=== PATIENT | male | born 1960 | race Caucasian/White ===

== ENCOUNTER 2021-01-29 20:57 | Emergency (ER) | payer OTHER ==
--- NOTE | 2021-01-29 21:32 | ED Respiratory ---
General Stated Complaint: LAKE,SORE THROAT,CONGESTION Source: patient History of Present Illness Date Seen by Provider: Jan 29, 2021 Time Seen by Provider: 21:25 Initial Comments PT ARRIVES VIA POV FROM HOME C/O COUGH C/O NASAL CONGESTION AND SINUS PRESSURE X 1 WEEK C/O HEADACHE C/O SORE THROAT HAS HAD SUBJECTIVE FEVER AND CHILLS SINCE Friday01/27/21 C/O BODY ACHES AND BACK PAIN C/O NAUSEA AND VOMITING--UNKNOWN # OF EPISODES OF EMESIS HAS HAD A FEW EPISODES OF DIARRHEA NO ABDOMINAL PAIN\\ SOME SHORTNESS OF BREATH--USES ALBUTEROL INHALER PRN FOR ASTHMA--NORMALLY USES A COUPLE OF TIMES A MONTH, HAS USED 4-5 TIMES IN THE LAST WEEK BUT NOT USED FOR THE LAST COUPLE OF DAYS ALL SYMPTOMS HAVE PROGRESSIVELY GOTTEN WORSE OVER THE LAST WEEK STATES HE HAS NOT VOIDED SINCE YESTERDAY WENT TO [facility] AND WAS TOLD TO TAKE ANTIHISTAMINE, BUT IT CAUSES ANXIETY, PALPITATIONS, UNABLE TO SLEEP, SO HAS NOT BEEN TAKING IT. REPORTS THAT RAPID COVID TEST WAS NEGATIVE PT WORKS FOR THE [employer] AND TRAVELS ALL OVER THE COUN[place]. ORIGINALLY FROM [facility]. Allergies and Home Medications Allergies Coded Allergies: clarithromycin (Verified Allergy, Unknown, 01/29/21) Uncoded Allergies: antihistamines (Adverse Reaction, Unknown, 01/29/21) Home Medications Benzonatate 100 Mg Capsule, 200 MG PO TID Prescribed by: ANA LILIA POST on 01/29/212315 Cefdinir 300 Mg Capsule, 300 MG PO BID Prescribed by: ANA LILIA POST on 01/29/212315 Guaifenesin/Dextromethorphan 1 Each Tbmp.12hr, 1 EACH PO BID Prescribed by: ANA LILIA POST on 01/29/212315 Methylprednisolone 4 Mg Tab.ds.pk, 4 MG PO UD PER DOSE PACK INSTRUCTIONS Prescribed by: ANA LILIA POST on 01/29/212315 Patient Home Medication List Home Medication List Reviewed: Yes Review of Systems Review of Systems Constitutional: see HPI, chills, fever, malaise, weakness EENTM: see HPI, nose congestion, throat pain Respiratory: see HPI, cough, short of breath Cardiovascular: no symptoms reported Gastrointestinal: see HPI; No abdominal pain; diarrhea, loss of appetite, na usea, vomiting Genitourinary: see HPI, decreased output Musculoskeletal: see HPI (BODY ACHES) Skin: no symptoms reported Psychiatric/Neurological: See HPI, Headache Hematologic/Lymphatic: No Symptoms Reported Immunological/Allergic: no symptoms reported Past Yrilwwm-Lwqzqt-Vybkwj Hx Past Med/Social Hx: Reviewed and Corrections made Patient Social History Alcohol Use: Occasionally Uses Drug of Choice: DENIES Smoking Status: Current Everyday Smoker Type Used: Cigarettes Past Medical History Surgeries: No Respiratory: Yes Asthma Cardiac: No Neurological: No Genitourinary: No Gastrointestinal: No Musculoskeletal: No Endocrine: No HEENT: No Cancer: No Psychosocial: No Integumentary: No Blood Disorders: No Physical Exam Vital Signs - First Documented 01/29/21 21:10 Temp 37.2 Pulse 87 Resp 16 B/P (MAP) 129/102 (111) Pulse Ox 97 O2 Delivery Room Air Capillary Refill : Height: '" Weight: lbs. oz. 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3-17.7 g/dL Hematocrit 51 40-54 % Mean Corpuscular Volume 91 80-99 fL Mean Corpuscular Hemoglobin 29 25-34 pg Mean Corpuscular Hemoglobin Concent 33 32-36 g/dL Red Cell Distribution Width 13.2 10.0-14.5 % Platelet Count 293 130-400 10^3/uL Mean Platelet Volume 9.8 9.0-12.2 fL Immature Granulocyte % (Auto) 0 % Neutrophils (%) (Auto) 73 42-75 % Lymphocytes (%) (Auto) 14 12-44 % Monocytes (%) (Auto) 9 0-12 % Eosinophils (%) (Auto) 3 0-10 % Basophils (%) (Auto) 1 0-10 % Neutrophils # (Auto) 7.2 1.8-7.8 10^3/uL Lymphocytes # (Auto) 1.4 1.0-4.0 10^3/uL Monocytes # (Auto) 0.9 0.0-1.0 10^3/uL Eosinophils # (Auto) 0.3 0.0-0.3 10^3/uL Basophils # (Auto) 0.1 0.0-0.1 10^3/uL Immature Granulocyte # (Auto) 0.0 0.0-0.1 10^3/uL Erythrocyte Sedimentation Rate 1 0-30 MM/HR D-Dimer 0.50 H 0.00-0.49 UG/ML Sodium Level 141 135-145 MMOL/L Potassium Level 4.2 3.6-5.0 MMOL/L Chloride Level 104 98-107 MMOL/L Carbon Dioxide Level 26 21-32 MMOL/L Anion Gap 11 5-14 MMOL/L Blood Urea Nitrogen 10 7-18 MG/DL Creatinine 1.21 0.60-1.30 MG/DL Estimat Glomerular Filtration Rate > 60 BUN/Creatinine Ratio 8 Glucose Level 88 70-105 MG/DL Calcium Level 9.3 8.5-10.1 MG/DL Corrected Calcium 8.5-10.1 MG/DL Total Bilirubin 0.6 0.1-1.0 MG/DL Aspartate Amino Transf (AST/SGOT) 21 5-34 U/L Alanine Aminotransferase (ALT/SGPT) 23 0-55 U/L Alkaline Phosphatase 92 40-136 U/L Lactate Dehydrogenase 230 H 125-220 U/L C-Reactive Protein High Sensitivity 0.58 H 0.00-0.50 MG/DL Total Protein 7.5 6.4-8.2 GM/DL Albumin 4.6 H 3.2-4.5 GM/DL Procalcitonin 0.05 <0.10 NG/ML Monoscreen NEGATIVE NEGATIVE Coronavirus (COVID-19)(PCR) Negative Negative Coronavirus 2018 ([facility]) Negative Negative Group A Streptococcus Screen NEGATIVE NEGATIVE Micro Results Microbiology 01/29/21 Throat Culture - Preliminary, Resulted No Beta Strep isolated 01/29/21 Influenza Types A,B Antigen ([facility]) - Final, Complete 01/29/21 Blood Culture - Preliminary, Resulted No growth 01/29/21 Blood Culture - Preliminary, Resulted No growth My Orders Orders - ANA LILIA POST DO Cbc With Automated Diff (01/29/21 21:24) Comprehensive Metabolic Panel (01/29/21 21:24) Fibrin Degradation Products (01/29/21 21:24) Procalcitonin (Pct) (01/29/21 21:24) Hs C Reactive Protein (01/29/21 21:24) Erythrocyte Sedimentation Rate (01/29/21 21:24) LDH (01/29/21 21:24) Blood Culture (01/29/21 21:24) Influenza A And B Antigens (01/29/21 21:24) Chest 1 View, Ap/Pa Only (01/29/21 21:24) Coronavirus Sars-Cov-2 So 2018 (01/29/21 21:24) Covid 19 Inhouse Test (01/29/21 21:24) Rapid Strep A Screen (01/29/21 21:24) Ondansetron Injection (Zofran Injectio (01/29/21 22:15) Ketorolac Injection (Toradol Injection) (01/29/21 22:08) Ed Iv/Invasive Line Start (01/29/21 22:08) Lactated Ringers (Lr 1000 Ml Iv Solution (01/29/21 22:15) Monotest (01/29/21 22:08) Ceftriaxone For Iv Use (Rocephin For I (01/29/21 23:15) Methylprednisolone Sod Succ (Solu-Medrol (01/29/21 23:15) Medications Given in ED Vital Signs/I&O 01/29/21 01/29/21 21:10 23:38 Temp 37.2 Pulse 87 81 Resp 16 20 B/P (MAP) 129/102 (111) 134/74 Pulse Ox 97 95 O2 Delivery Room Air Room Air Capillary Refill : Progress Note : Progress Note PLACED IN ISOLATION ROOM PPE WORN AT ALL TIMES COVID-19 TESTING PERFORMED PT ADVISED OF NEED FOR QUARANTINE GIVEN IV FLUIDS, SOLU-MEDROL AND ROCEPHIN, TORADOL AND ZOFRAN STATES HE FEELS BETTER AT DISMISSAL Departure Impression Primary Impression: Person under investigation for COVID-19 Additional Impressions: BRONCHITIS, POSSIBLE PNEUMONIA URI (upper respiratory infection) Disposition: HOME, SELF-CARE Condition: Stable Departure-Patient Inst. Patient Instructions: Acute Bronchitis, Adult (DC), Coronavirus Disease 2019 (COVID-19) Overview, Preventing the Spread of an Infectious Disease, Upper Respiratory Infection ED Add. Discharge Instructions: LOTS OF CLEAR LIQUIDS--WATER, BROTH, JELLO, GATORADE TYLENOL 1 GRAM/ MOTRIN 800 MG 4 TIMES A DAY NEEDED FOR PAIN OR FEVER QUARANTINE YOURSELF AND ALL CLOSE CONTACTS FOR THE NEXT 2 WEEKS OR UNTIL CLEARED BY OR HEALTH DEPT FOLLOW UP WITH OF JULIANE IN 3-4 DAYS IF NO BETTER, RETURN TO ER IF WORSE Scripts Guaifenesin/Dextromethorphan (Mucinex Dm ER 1,200-60 mg Tab) 1 Each Tbmp.12hr 1 EACH PO BID, #20 EA Prov: ANA LILIA POST DO 01/29/21 Benzonatate (TESSALON PERLES) 100 Mg Capsule 200 MG PO TID, #30 CAP Prov: ANA LILIA POST DO 01/29/21 Methylprednisolone (Medrol) 4 Mg Tab.ds.pk 4 MG PO UD for 6 Days, #21 PKG PER DOSE PACK INSTRUCTIONS Prov: ANA LILIA POST DO 01/29/21 Cefdinir (Cefdinir) 300 Mg Capsule 300 MG PO BID, #20 CAP Prov: ANA LILIA POST DO 01/29/21 Work/School Note: Work Release Form Date Seen in the Emergency Department: Jan 29, 2021 Return to Work: Feb 12, 2021 Restrictions: Need Release from Doctor ANA LILIA POST DO Jan 29, 2021 21:32
[2021-01-29 21:57] LABS: BASOPHILS # (AUTO) 0.1 10^3/uL (0.0-0.1); BASOPHILS % (AUTO) 1 % (0-10); EOSINOPHILS # (AUTO) 0.3 10^3/uL (0.0-0.3); EOSINOPHILS % (AUTO) 3 % (0-10); HEMATOCRIT 51 % (40-54); HEMOGLOBIN 16.7 g/dL (13.3-17.7); LYMPHOCYTES # (AUTO) 1.4 10^3/uL (1.0-4.0); LYMPHOCYTES % (AUTO) 14 % (12-44); MEAN CORPUSCULAR HEMOGLOBIN 29 pg (25-34); MEAN CORPUSCULAR HGB CONC 33 g/dL (32-36); MEAN CORPUSCULAR VOLUME 91 fL (80-99); MEAN PLATELET VOLUME 9.8 fL (9.0-12.2); MONOCYTES # (AUTO) 0.9 10^3/uL (0.0-1.0); MONOCYTES % (AUTO) 9 % (0-12); NEUTROPHILS # (AUTO) 7.2 10^3/uL (1.8-7.8); NEUTROPHILS % (AUTO) 73 % (42-75); PLATELET COUNT 293 10^3/uL (130-400); WHITE BLOOD COUNT 9.8 10^3/uL (4.3-11.0)
[2021-01-29] MEDS ORDERED: KETOROLAC 30 MG/ML VIAL IVP STA (22:08)
[2021-01-29] MEDS ORDERED: ONDANSETRON 4 MG/2 ML (SDV) Z0FRAN IVP ONE (22:15)
[2021-01-29] MEDS ORDERED: LACTATED RINGERS 1,000 ML IV ONE (22:15)
[2021-01-29 22:16] LABS: ERYTHROCYTE SEDIMENTATION RATE 1 MM/HR (0-30)
[2021-01-29 22:18] LABS: ALANINE AMINOTRANSFERASE 23 U/L (0-55); ALBUMIN 4.6 GM/DL (3.2-4.5); ALKALINE PHOSPHATASE 92 U/L (40-136); BILIRUBIN,TOTAL 0.6 MG/DL (0.1-1.0); BUN/CREATININE RATIO 8; CALCIUM 9.3 MG/DL (8.5-10.1); CARBON DIOXIDE 26 MMOL/L (21-32); CHLORIDE 104 MMOL/L (98-107); CREATININE SERUM 1.21 MG/DL (0.60-1.30); GFR ESTIMATED > 60; GLUCOSE 88 MG/DL (70-105); POTASSIUM 4.2 MMOL/L (3.6-5.0); SODIUM 141 MMOL/L (135-145); TOTAL PROTEIN 7.5 GM/DL (6.4-8.2)
[2021-01-29] MEDS ORDERED: cefTRIAXone FOR IV USE 1,000 MG in WATER (STERILE) FOR INJECTION 10 ML IV ONE (23:15)
[2021-01-29] MEDS ORDERED: methylPREDNISolone 125 MG (Solu-MEDROL) VIAL IVP ONE (23:15)
[2021-01-29] MEDS ORDERED: CEFD300C3 PO (23:16)
[2021-01-29] MEDS ORDERED: BENZ100C18 PO (23:16)
[2021-01-29] MEDS ORDERED: METH4TAB PO (23:16)
[2021-01-29] MEDS ORDERED: GUAI1TBM19 PO (23:16)
[2021-01-29 23:38] VITALS: BP 134/74
--- NOTE | 2021-01-30 07:52 | Diagnostic Imaging Report ---
INDICATION: FEVER, COUGH. TECHNIQUE: Single view chest 9:47 PM. CORRELATION STUDY: None FINDINGS: The heart size, mediastinal configuration and pulmonary vascularity are within normal limits. Lungs are slightly hyperinflated. No definitive infiltrate. No effusion. IMPRESSION: 1. Hyperinflated lung jimenez. Negative for acute abnormality. Dictated by: Dictated on workstation # [id number]
== END 2021-01-29 23:38 | disposition home or self-care (01) ==
LOC: ER 21:01
DX: J40 Bronchitis, not specified as acute or chronic (principal); J06.9 Acute upper respiratory infection, unspecified; I10 Essential (primary) hypertension; F17.210 Nicotine dependence, cigarettes, uncomplicated; Z20.822 Contact with and (suspected) exposure to COVID-19; Z79.52 Long term (current) use of systemic steroids; Z88.1 Allergy status to other antibiotic agents; Z88.8 Allergy status to other drugs, medicaments and biological substances
CPT/HCPCS: 71045; 80053; 83615; 84145; 85025; 85379; 85652; 86141; 86308; 87040; 87430; 87804; 99284; U0002; 36415; 87635

== ENCOUNTER 2021-02-02 21:20 | Emergency (ER) | payer OTHER ==
[~2021-02-02] VITALS: Ht 167.7 cm; Wt 71.7 kg
[~2021-02-02 21:20] MED LIST: BENZ100C18 PO; CEFD300C3 PO; GUAI1TBM19 PO; METH4TAB PO
[2021-02-02 21:39] VITALS: BP 138/76
--- NOTE | 2021-02-02 21:40 | ED General ---
General Chief Complaint: General Problems/Pain Stated Complaint: NEEDS MEDICALLY CLEARED History of Present Illness Date Seen by Provider: Feb 02, 2021 Time Seen by Provider: 21:40 Initial Comments 60-year-old male presents to get a work release. Patient was seen in the ER on 01/29/2021. He was placed on a 14-day quarantine with concerns of Covid. He has had both a rapid and a PCR test that came back negative. Patient has no further symptoms. Patient needs a work note to be released to go back. No other complaints Allergies and Home Medications Allergies Coded Allergies: clarithromycin (Verified Allergy, Unknown, 01/29/21) Uncoded Allergies: antihistamines (Adverse Reaction, Unknown, 01/29/21) Home Medications Benzonatate 100 Mg Capsule, 200 MG PO TID Prescribed by: ANA LILIA POST on 01/29/212315 Cefdinir 300 Mg Capsule, 300 MG PO BID Prescribed by: ANA LILIA POST on 01/29/212315 Guaifenesin/Dextromethorphan 1 Each Tbmp.12hr, 1 EACH PO BID Prescribed by: ANA LILIA POST on 01/29/212315 Methylprednisolone 4 Mg Tab.ds.pk, 4 MG PO UD PER DOSE PACK INSTRUCTIONS Prescribed by: ANA LILIA POST on 01/29/212315 Patient Home Medication List Home Medication List Reviewed: Yes Review of Systems Review of Systems Constitutional: no symptoms reported EENTM: no symptoms reported Respiratory: no symptoms reported Cardiovascular: no symptoms reported Gastrointestinal: no symptoms reported Genitourinary: no symptoms reported Musculoskeletal: no symptoms reported Skin: no symptoms reported Psychiatric/Neurological: No Symptoms Reported Hematologic/Lymphatic: No Symptoms Reported Past Tofbxve-Wbxwcd-Buzfxx Hx Past Med/Social Hx: Reviewed Nursing Past Med/Soc Hx Patient Social History Drug of Choice: DENIES Type Used: Cigarettes 2nd Hand Smoke Exposure: No Recent Hopitalizations: No Immunizations Up To Date Tetanus Booster (TDap): Less than 5yrs Seasonal Allergies Seasonal Allergies: Yes Past Medical History Surgeries: No Vasectomy Respiratory: Yes Asthma Cardiac: No Neurological: No Genitourinary: No Gastrointestinal: No Musculoskeletal: No Endocrine: No HEENT: No Cancer: No Psychosocial: No Integumentary: No Blood Disorders: No Physical Exam Vital Signs Capillary Refill : Height, Weight, BMI Height: '" Weight: lbs. oz. kg; BMI Method: General Appearance: No Apparent Distress, WD/WN Respiratory: Lungs Clear, Normal Breath Sounds Cardiovascular: Regular Rate, Rhythm, No Edema Neurologic/Psychiatric: Alert, Oriented x3, Normal Mood/Affect Skin: Normal Color Progress/Results/Core Measures Suspected Sepsis SIRS Temperature: Pulse: Respiratory Rate: Blood Pressure / Mean: Results/Orders Vital Signs/I&O Capillary Refill : Progress Note : Progress Note Patient with significant negative work-up on 01/29/2021. Patient likely with seasonal virus. He was negative for coronavirus by both PCR and rapid. I will provide him with a work note so he is able to return to work as requested. Departure Impression Primary Impression: URI (upper respiratory infection) Qualified Codes: J06.9 - Acute upper respiratory infection, unspecified Disposition: HOME, SELF-CARE Condition: Stable Departure-Patient Inst. Referrals: NO,LOCAL PHYSICIAN (PCP/Family) Primary Care Physician Work/School Note: Work Release Form Date Seen in the Emergency Department: Feb 02, 2021 Return to Work: Feb 03, 2021 Restrictions: No Restrictions PHYLLIS SCHAEFFER DO Feb 02, 2021 21:40
== END 2021-02-02 21:46 | disposition home or self-care (01) ==
LOC: EDUNIT# 21:20 → ER FS 21:21
DX: J06.9 Acute upper respiratory infection, unspecified (principal); J45.909 Unspecified asthma, uncomplicated; Z79.52 Long term (current) use of systemic steroids; Z88.1 Allergy status to other antibiotic agents; Z88.8 Allergy status to other drugs, medicaments and biological substances
CPT/HCPCS: 99281